=== PATIENT | male | born 1965 | race Caucasian/White ===

== ENCOUNTER 2021-08-26 18:08 | Inpatient (IN) ==
[2021-08-26] MEDS ORDERED: IOPAMIDOL 100 ML BOTTLE IV ONE (18:09)
--- NOTE | 2021-08-26 18:29 | Emergency Department Note ---
Abdominal Pain HPI General Chief Complaint: Abdominal Pain Stated Complaint: abdominal pain Time Seen by Provider: 08/26/21 18:13 Source: patient Mode of arrival: ambulatory Limitations: no limitations History of Present Illness HPI Narrative: Narrative: This is a 55-year-old male with a past medical history of hyp ertension presents emergency department with complaints of abdominal pain. He states that for the last 3 days he has been having suprapubic abdominal pain that is okay in the morning but worse in the afternoon. He describes the pain as a burning and sometimes stabbing-like sensation. Ibuprofen seems to improve the pain. Palpation makes it worse along with moving around. He has had some chills last night but no fever. He denies chest pain shortness of breath nausea or vomiting. He did notice some blood that was "layed" in his stool that he first noticed yesterday but did not have any melanotic stools. He was told after his colonoscopy that he does have diverticulosis. He has never had diverticulitis. He denies any previous abdominal surgeries. He states that sometimes it does hurt a little bit to pee and to get his stream going but otherwise denies urgency or frequency. Related Data Previous Rx's Medication Instructions Recorded cephalexin 500 mg capsule 500 mg PO BID #20 cap 07/24/17 Allergies Allergy/AdvReac Type Severity Reaction Status Date / Time No Known Drug Allergies Allergy Verified 07/24/17 15:26 Review of Systems ROS ROS Narrative: Narrative: All systems ED: reviewed and negative except as stated. Constitutional: Reports chills Gastrointestinal: Reports other (Suprapubic pain) [facility] Narrative Patient History Narrative: Narrative: Medical/Surgical/Family History All Active Problems (Updated 08/26/21 @ 20:17 by Juan Villasenor PA-C) Finger laceration (Acute) Acute appendicitis (Acute) Social History Smoking Status: Smokeless tobacco Exam Narrative Narrative: Narrative: General Limitations: no limitations General appearance: Present alert and in no apparent distress Head Head: Present atraumatic and normocephalic Adbominal Abdominal: Present other (Suprapubic pain with palpation. Abdomen is soft and nondistended. diffuse No tenderness over McBurney's point. Negative Robison sign.) Neurological Neurological: Present alert and oriented X3 Psychiatric Psychiatric: Present normal affect and normal mood Skin Skin: Present warm (WNL), dry and normal color Course Vital Signs Vital signs: Vital Signs Temperature 97.5 F 08/26/21 18:08 Pulse Rate 94 H 08/26/21 18:08 Respiratory Rate 16 08/26/21 18:08 Blood Pressure 142/97 08/26/21 18:08 Pulse Oximetry (%) 96 08/26/21 18:08 Temperature 97.5 F 08/26/21 18:08 Pulse Rate 82 08/26/21 20:01 Respiratory Rate 18 08/26/21 18:37 Blood Pressure 166/103 08/26/21 20:01 Pulse Oximetry (%) 94 08/26/21 20:01 MDM MDM Narrative Medical decision making narrative: Narrative: Labs done at [facility] was CBC which showed leukocytosis at 17.3 thousand with increase in the absolute neutrophil count and percentage of neutrophils. UA shows a small amount of urine bilirubin, trace ketones, large amount of blood, slight protein. CMP is reviewed and unremarkable CT of abdomen pelvis with contrast showed: 1. Extensive inflammatory change in the right lower quadrant. Appearance is consistent with ruptured appendicitis and abscess formation 2. Sigmoid diverticulosis 3. Hepatic steatosis IV Zosyn started I spoke with Dr. Romeo who reviewed the imaging. He is coming in the emergency department to have a shared decision making with the patient in regards to radiology drain those abscesses versus going in for operative management. Morphine and Zofran given for pain and nausea prophylactically. Dr. Romeo has decided to take the patient to the OR and will admit the patient. Lab Data Result diagrams: 08/26/21 18:24 Labs: Lab Results 08/26/21 Range/Units 18:24 Sodium 135 (133-145) mmol/L Potassium 4.5 (3.3-5.1) mmol/L Chloride 101 (96-108) mmol/L Carbon Dioxide 23 (22-30) mmol/L Anion Gap 11.0 (8.0-16.0) BUN 14 (6-20) mg/dL Creatinine 1.1 (0.7-1.2) mg/dL GFR Calculation 75 Glucose 100 (70-105) mg/dL Calcium 9.6 (8.6-10.4) mg/dL Total Bilirubin 0.9 (0.1-1.0) mg/dL AST 14 (<40) U/L ALT 19 (<40) U/L Alkaline Phosphatase 71 (39-117) U/L Total Protein 7.1 (5.9-8.4) gm/dL Albumin 4.0 (3.2-5.2) gm/dL Globulin 3.1 (2.2-3.7) gm/dL Albumin/Globulin Ratio 1.3 (1.0-2.3) Lipase 26 (7-60) U/L Discharge Plan Patient/Caregiver Discharge Instructions Pt seen by YARD ASSOCIATE/PA only: No Clinical Impression: Appendicitis, acute Activity: increase activity as tolerated Patient Disposition: Xfer As Inpt ([facility]) Condition: Serious Follow up with: Myrna Stein ARNP [Primary Care Provider] - Prescriptions: No Action cephalexin 500 MG capsule 500 mg PO BID Qty: 20 0RF
[2021-08-26 19:21] LABS: ALT/SGPT 19 U/L (<40); AST/SGOT 14 U/L (<40); Albumin/Globulin Ratio 1.3 (1.0-2.3); Alkaline Phosphatase 71 U/L (39-117); Bilirubin,Total 0.9 mg/dL (0.1-1.0); Blood Urea Nitrogen 14 mg/dL (6-20); Calcium 9.6 mg/dL (8.6-10.4); Carbon Dioxide 23 mmol/L (22-30); Chloride 101 mmol/L (96-108); Globulin 3.1 gm/dL (2.2-3.7); Glomerular Filtration Rate 75; Glucose 100 mg/dL (70-105)
--- NOTE | 2021-08-26 19:33 | Cat Scan Report ---
INDICATION: suprapubic pain, hx of diverticulosis. WBC 17k COMPARISON: None. TECHNIQUE: Axial images were obtained through the abdomen and pelvis. Sagittally and coronally reformatted images. 80 mL Isovue 370 injected intravenously. Oral contrast material was not administered FINDINGS: Lung bases:Negative. No pulmonary parenchymal nodule. No pleural fluid or pericardial fluid Liver:Low density liver consistent with hepatic steatosis. 9 mm low-density abnormality in the right lobe of the liver most consistent with cysts. Liver contour is smooth. No intrahepatic abscess Gallbladder, bilary:No calcified gallstones. No gallbladder wall thickening. No dilated intra or extrahepatic bile ducts. Spleen:Mild splenomegaly. Spleen measures 14.3 x 13.3 cm. Normal enhancement of splenic and portal veins Pancreas:No pancreatic mass. No peripancreatic abnormality Adrenal glands:Negative Kidneys,ureters,bladder:No solid renal mass. No hydronephrosis. No obstructing or nonobstructing calculi. No hydroureter. No ureteral calculus. No bladder stone. No detectable bladder mass. Gastrointestinal:There is sigmoid colon diverticulosis. No detectable colonic mass. There is extensive inflammatory reaction in the right lower quadrant. There are 2 low density abnormalities which measure 3.2 cm and 2.4 cm. There are no gas bubbles but is low-density abnormalities are consistent with abscess. Although there is extensive diverticulosis in this patient gives a history of diverticulitis this appearance is most consistent with ruptured appendicitis. Proximal appendix measures 15 mm. Negative small bowel. No mechanical small bowel obstruction. No bowel wall thickening. No focal abnormality. Negative stomach and duodenum. No focal abnormality. Appendix: The appendix is abnormal. As described above appearance is consistent with acute ruptured appendicitis with abscesses Vascular:Negative abdominal aorta. Superior mesenteric artery and celiac trunk are normal. Normal opacification of the inferior mesenteric artery Lymphatic:There are multiple lymph nodes in the right lower quadrant. Mesentery, peritoneum: Mild free intraperitoneal fluid. No significant pneumoperitoneum Reproductive:Prostate is not significantly enlarged Musculoskeletal:Multilevel degenerative disc disease No abdominal wall or inguinal hernia IMPRESSION: 1. Extensive inflammatory change in the right lower quadrant. Appearance is consistent with ruptured appendicitis and abscess formation 2. Sigmoid diverticulosis 3. Hepatic steatosis The exam was performed using radiation dose optimization techniques including, but not limited to, automated exposure control, adjustment of the mA and/or kV according to patient size and use of iterative reconstruction technique. Interpreted and Authenticated by: Pedro Garcia 08/26/21
[2021-08-26] MEDS ORDERED: PIPERACILLIN SODIUM/TAZOBACTAM 3.375 GM in DEXTROSE 5% IN WATER 50 ML IV ONE (19:39)
[2021-08-26] MEDS ORDERED: ONDANSETRON 4 MG/2 ML VIAL IV ONE (19:51)
[2021-08-26] MEDS ORDERED: morphine 10 MG/ML VIAL IV ONE (19:51)
--- NOTE | 2021-08-26 20:30 | General Surg History&Physical ---
HPI History of Present Illness Patient information: Note initiated : 08/26/21 at 8:27 pm Service Date, if different from initiated Date: [] Patient: Jesse Krishnamurthy 55 y/o M admitted on for abdominal pain. Chief Complaint: [] Chief complaint: Abdominal pain History of present illness: Mr. Krishnamurthy is a 55 year old M who presents with 3-day history of vague abdominal pain. He says it is worse in the mornings, gets better midday and then worse in the evening. He denies any prior history of similar sort of pain. Upon p resentation today the pain is along with worse in the right lower quadrant. He reports mild fevers with chills, no nausea vomiting constipation or diarrhea. He has no prior surgical or medical history other than a knee replacement recently. He presented to the emergency room for evaluation his pain where CT scan was consistent with perforated appendicitis. Review of Systems Review of systems: All systems are reviewed, negative other than above PFSH PFSH All Active Problems Finger laceration (Acute) Acute appendicitis (Acute) MEDS/ALLERGIES Home Medications and Allergies Home Medications Medication Instructions Recorded Confirmed Type cephalexin 500 mg capsule 500 mg PO BID #20 cap 07/24/17 Rx Allergies Allergy/AdvReac Type Severity Reaction Status Date / Time No Known Drug Allergies Allergy Verified 07/24/17 15:26 Physical Examination Vital Signs Vital signs: Temp Pulse Resp BP Pulse Ox 97.5 F 82 18 166/103 94 08/26/21 18:08 08/26/21 20:01 08/26/21 18:37 08/26/21 20:01 08/26/21 20:01 General physical appearance General physical exam: well developed, well nourished and no distress Eyes Eye exam: PERRL and normal ocular movement ENT ENT exam: normal pinna, normal nares, normal mucosa, no hearing loss and no congestion Head Head exam IM: Present atraumatic and normocephalic Neck Neck exam: no masses, no bruits, trachea midline, no lymphadenopathy and no venous distension Cardiovascular Cardiovascular exam IM: Present normal rate and rhythm Respiratory Respiratory exam: normal expansion, normal respiratory effort, clear to percussion and clear to auscultation Abdomen Abdomen: Present soft, tender (RLQ), bowel sounds, guarding and distended; Absent rigid or rebound Hernia: Present none Genitourinary Genitourinary (Male): Present normal penis with no external lesions Rectum Rectum: Present normal sphincter tone, no hemorrhoids, no tenderness, no masses and no bleeding Integumentary Integumentary: Present no rash, no growths and no abnormal pigmentation Neurologic Neurologic: Present normal coordination and normal sensation Musculoskeletal Musculoskeletal: Present normal gait and normal posture Psychiatric Psychiatric: Present oriented to time, oriented to person, oriented to place, speech is normal and memory intact Results Labs Result diagrams: 08/26/21 18:24 Labs: Diabetes panel 08/26/21 Range/Units 18:24 Sodium 135 (133-145) mmol/L Potassium 4.5 (3.3-5.1) mmol/L Chloride 101 (96-108) mmol/L Carbon Dioxide 23 (22-30) mmol/L BUN 14 (6-20) mg/dL Creatinine 1.1 (0.7-1.2) mg/dL Glucose 100 (70-105) mg/dL Calcium 9.6 (8.6-10.4) mg/dL AST 14 (<40) U/L ALT 19 (<40) U/L Alkaline Phosphatase 71 (39-117) U/L Total Protein 7.1 (5.9-8.4) gm/dL Albumin 4.0 (3.2-5.2) gm/dL Calcium panel 08/26/21 Range/Units 18:24 Calcium 9.6 (8.6-10.4) mg/dL Albumin 4.0 (3.2-5.2) gm/dL Pituitary panel 08/26/21 Range/Units 18:24 Sodium 135 (133-145) mmol/L Potassium 4.5 (3.3-5.1) mmol/L Chloride 101 (96-108) mmol/L Carbon Dioxide 23 (22-30) mmol/L BUN 14 (6-20) mg/dL Creatinine 1.1 (0.7-1.2) mg/dL Glucose 100 (70-105) mg/dL Calcium 9.6 (8.6-10.4) mg/dL Adrenal panel 08/26/21 Range/Units 18:24 Sodium 135 (133-145) mmol/L Potassium 4.5 (3.3-5.1) mmol/L Chloride 101 (96-108) mmol/L Carbon Dioxide 23 (22-30) mmol/L BUN 14 (6-20) mg/dL Creatinine 1.1 (0.7-1.2) mg/dL Glucose 100 (70-105) mg/dL Calcium 9.6 (8.6-10.4) mg/dL Total Bilirubin 0.9 (0.1-1.0) mg/dL AST 14 (<40) U/L ALT 19 (<40) U/L Alkaline Phosphatase 71 (39-117) U/L Total Protein 7.1 (5.9-8.4) gm/dL Albumin 4.0 (3.2-5.2) gm/dL All other labs normal. A/P Assessment and plan (1) Acute appendicitis: Plan: This is a pleasant 55-year-old gentleman who presents with acute appendicitis, likely perforation with small fluid collections abscess. Risk, benefits, alternatives to treatment including nonoperative management with IV antibiotics, possible need for interventional radiology drain of the fluid collections, operative intervention laparoscopic with possible need for open discussed at length. He verbalizes understanding, all of his questions are answered. He desires to proceed with operative intervention. Plan: Laparoscopic appendectomy. Status: Acute Time Spent With Patient Time: Total time spent is greater than 50% in coordination of care (as documented) at patient's floor/unit and/or counseling patient:
[2021-08-26] MEDS ORDERED: ROCURONIUM 10 MG/ML ML IV ONE (21:20)
[2021-08-26] MEDS ORDERED: KETAMINE 50 MG/ML Syringe (ANEST) IV ONE (21:20)
[2021-08-26] MEDS ORDERED: SUGAMMADEX SODIUM 200 MG/2 ML VIAL IV ONE (21:20)
[2021-08-26] MEDS ORDERED: DEXAMETHASONE 10 MG/ML VIAL ONE (21:20)
[2021-08-26] MEDS ORDERED: LIDOCAINE HCL/PF 100 MG/5 ML SYRINGE IV ONE (21:20)
[2021-08-26] MEDS ORDERED: ONDANSETRON 4 MG/2 ML VIAL ONE (21:20)
[2021-08-26] MEDS ORDERED: fentaNYL 100 MCG/2 ML VIAL IV ONE (21:20)
[2021-08-26] MEDS ORDERED: PROPOFOL 200 MG/20 ML VIAL IV ONE (21:20)
[2021-08-26] MEDS ORDERED: MAGNESIUM SULFATE 4 GM/100 ML BAG IV ONE (21:20)
[2021-08-26] MEDS ORDERED: LACTATED RINGERS 250 ML IV PRN (21:39)
[2021-08-26] MEDS ORDERED: IPRATROPIUM/ALBUTEROL 3 ML AMPUL.NEB NEB PRN (21:39)
[2021-08-26] MEDS ORDERED: fentaNYL 100 MCG/2 ML VIAL IV PRN (21:39)
[2021-08-26] MEDS ORDERED: KETOROLAC 30 MG/ML VIAL IV PRN (21:39)
[2021-08-26] MEDS ORDERED: PROMETHAZINE 25 MG/ML VIAL IV PRN (21:39)
[2021-08-26] MEDS ORDERED: ONDANSETRON 4 MG/2 ML VIAL IV PRN ×2 (21:39→22:01)
[2021-08-26] MEDS ORDERED: HYDROmorphone 0.5 MG/0.5 ML SYRINGE IV PRN (21:39)
[2021-08-26] MEDS ORDERED: NALOXONE HCL 0.4 MG/ML VIAL IV PRN (21:39)
[2021-08-26] MEDS ORDERED: diphenhydrAMINE 50 MG/ML VIAL IV PRN (21:39)
[2021-08-26] MEDS ORDERED: MEPERIDINE 25 MG/ML VIAL IV PRN (21:39)
[2021-08-26] MEDS ORDERED: ACETAMINOPHEN 1,000 MG/100 ML BAG IV ONE ×2 (21:39→22:24)
[2021-08-26] MEDS ORDERED: LACTATED RINGERS 1,000 ML IV SCH (21:45)
[2021-08-26] MEDS ORDERED: oxyCODONE HCL 5 MG TABLET PO PRN (22:01)
--- NOTE | 2021-08-26 22:01 | Operative Note ---
Brief Operative Note Date of procedure: 08/26/21 Pre-op diagnosis: Acute perforated appendicitis Post-op diagnosis: other (Perforated sigmoid diverticulitis) Procedure: Laparoscopic appendectomy, drainage of intra-abdominal abscess, drain placement Grafts/Implants: No Anesthesia: GETA Findings: Consistent with perforated sigmoid diverticulitis with several interloop abscesses Complications: none Surgeon: Edilson Romeo Estimated blood loss (cc): 25 Specimens Removed/Pathology: other (Appendix) Condition: stable Disposition: PACU Operative Note Operative Note: After risk benefits and alternatives to the procedure were discussed with the patient at length he verbalized understanding and desire to continue with the procedure. Patient was taken main operating room placed supine operative table. General anesthesia was induced over endotracheal tube. Patient's prepped and draped in standard sterile surgical fashion. Surgical timeout was taken to verify patient and procedure being performed. 1% lidocaine half percent Marcaine was used for local anesthesia. Left side incision was made and the abdominal cavity was entered under direct vision using a 5 mm Optiview trocar. Abdominal cavity was insufflated with carbon dioxide and visual inspection revealed no injuries. 12 mm supraumbilical and a 5 mm left lower quadrant trochars were then placed under direct vision. Attention was turned to the lower abdomen where acutely inflamed sigmoid was identified with multiple loops of small bowel attached, these were carefully taken down with blunt dissection and multiple interloop abscesses were identified. These were carefully suctioned free from the abdominal cavity. The appendix was then identified, it was dissected free from the surrounding structures with blunt dissection. Once this was done the appendix was mobile and the retroappendiceal window was created with blunt dissection and the appendix was transected at its base using Endo NILAM stapler. The remainder of the mesoappendix was then transected using electrocautery. Once appendix was fully transected and dissected free it was placed in Endo Catch bag removed thro ugh the upper midline incision and passed off the field for surgical pathology. The abdominal cavity was copiously irrigated and all irrigant was suctioned free from the pelvis. There was no josiah stool in the abdomen. Attention was turned back to the staple lines which were inspected for hemostasis. 10 Israeli flat drain was placed into the pelvis and removed through the left lower quadrant incision. The upper midline fascial defect was then reapproximated with interrupted 0 Vicryl suture. The CO2 and trochars were removed under direct vision. Trocar sites were inspected for hemostasis. The skin incisions were closed with interrupted 4 Monocryl sutures and skin glue dressings were applied. Drain stitch was placed around the left lower quadrant drain and drain dressings were applied. Patient was then awakened from general anesthesia transferred postanesthesia care unit awake alert in good condition.
[2021-08-26] MEDS ORDERED: CIPROFLOXACIN 400 MG/200 ML BAG IV SCH (22:15)
[2021-08-26] MEDS ORDERED: LIDOCAINE W/EPI 1% 20 ML, BUPIVACAINE 0.5% 20 ML IJ ONE (22:23)
[2021-08-26] MEDS: LACTATED RINGERS 1,000 ML IV SCH (22:24)
[2021-08-26] MEDS ORDERED: CIPROFLOXACIN 400 MG/200 ML BAG IV ONE (22:54)
[2021-08-26] MEDS: metroNIDAZOLE 500 MG/100 ML BAG IV SCH (22:56)
[2021-08-27 05:55] LABS: Basophils # (Auto) 0.03 K/mcL (0.00-0.30); Basophils % (Auto) 0.2 % (0.0-2.0); Eosinophils # (Auto) 0.01 K/mcL (0.00-0.70); Eosinophils % (Auto) 0.1 % (0.0-7.0); Hematocrit 42.1 % (40.1-51.0); Hemoglobin 14.2 g/dL (13.7-17.5); Lymphocytes # (Auto) 0.56 K/mcL (1.50-4.80); Lymphocytes % (Auto) 3.3 % (15.5-49.0); Mean Cell Volume 98.4 fL (80.0-100.0); Mean Corpuscular HGB Conc 33.7 g/dL (31.0-36.0); Mean Platelet Volume 9.2 fL (7.4-10.4); Monocytes # (Auto) 0.49 K/mcL (0.10-0.90); Monocytes % (Auto) 2.9 % (1.0-12.0); Neutrophils % (Auto) 93.5 % (38.0-78.0); Platelet Count 327 K/mcL (140-440); RBC 4.28 M/mcL (4.63-6.08); Red Cell Distribution Width 12.7 % (11.5-14.5)
[2021-08-27 06:22] LABS: Blood Urea Nitrogen 13 mg/dL (6-20); Carbon Dioxide 19 mmol/L (22-30); Chloride 100 mmol/L (96-108); Glomerular Filtration Rate 84; Glucose 147 mg/dL (70-105)
[2021-08-27] MEDS: metroNIDAZOLE 500 MG/100 ML BAG IV SCH (06:49)
--- NOTE | 2021-08-27 07:40 | General Surgery Progress Note ---
SUBJECTIVE Subjective Patient information: Note initiated : 08/27/21 at 7:33 am Service Date, if different from initiated Date: [] Patient: Jesse Krishnamurthy 55 y/o M admitted on 08/26/21 for abdominal pain. Chief Complaint: [] Principal diagnosis: Perforated diverticulitis Interval history: Patient feels much better this morning, no fevers chills nausea or vomiting. Constitutional Vitals: Vital Signs Temp Pulse Resp BP Pulse Ox 96.4 F L 86 18 133/84 98 08/27/21 04:15 08/27/21 04:15 08/27/21 04:15 08/27/21 04:15 08/27/21 04:15 Period Temp Pulse Resp BP Sys/Kaur Pulse Ox Last 24 Hr 96.4 F-98.6 F 79-120 16-28 115-166/73-111 91-99 Intake and Output 08/26/21 08/27/21 08/27/21 21:59 05:59 13:59 Intake Total 50 1875 Output Total 625 Balance 50 1250 Weight 236 lb 236 lb Intake & Output: Intake & Output 08/26/21 08/27/21 08/27/21 21:59 05:59 13:59 Intake Total 50 1875 Output Total 625 Balance 50 1250 Weight 236 lb 236 lb Intake: IV 50 400 Zosyn 3.375 gm In Dextrose 5% 50 in Water 50 ml @ 100 mls/hr IV ONCE ONE Rx#:[id number] Oral 575 IV - Manual Only 900 Output: Drainage 75 Left Lower Abdomen 75 Void Amount 550 Other: Urine Appearance Clear Urine Color Dark Yellow General appearance: cooperative and no acute distress GI/Abdominal GI/Abdominal exam: Present soft and tenderness; Absent distended A/P Assessment and plan (1) Diverticulitis large intestine: Assessment and plan: Postop day #1 status post laparoscopic appendectomy with abdominal washout secondary to perforated diverticulitis. Patient is doing well, will start p.o. antibiotics, regular diet. Anticipate discharge in the next several days. Status: Acute Time Spent With Patient Time: Total time spent is greater than 50% in coordination of care (as documented) at patient's floor/unit and/or counseling patient:
[2021-08-27] MEDS: LACTATED RINGERS 1,000 ML IV SCH ×2 (09:22→14:45)
[2021-08-27] MEDS: 0.9 % SODIUM CHLORIDE 10 ML SYRINGE IV SCH ×3 (09:42→21:09)
[2021-08-27] MEDS: ACETAMINOPHEN 325 MG TABLET PO PRN ×2 (09:52→17:45)
[2021-08-27] MEDS: IBUPROFEN 600 MG TABLET PO PRN ×2 (09:53→17:45)
[2021-08-27] MEDS: CIPROFLOXACIN 500 MG TABLET PO SCH ×2 (09:53→21:09)
--- NOTE | 2021-08-27 12:38 | EKG ---
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
[2021-08-27] MEDS: metroNIDAZOLE 500 MG TABLET PO SCH ×2 (14:11→21:09)
[2021-08-28] MEDS: IBUPROFEN 600 MG TABLET PO PRN ×2 (00:12→08:05)
[2021-08-28] MEDS: ACETAMINOPHEN 325 MG TABLET PO PRN ×2 (03:44→16:57)
[2021-08-28] MEDS: metroNIDAZOLE 500 MG TABLET PO SCH ×3 (05:40→21:34)
[2021-08-28] MEDS: 0.9 % SODIUM CHLORIDE 10 ML SYRINGE IV SCH ×3 (05:41→21:35)
[2021-08-28 06:53] LABS: Basophils # (Auto) 0.05 K/mcL (0.00-0.30); Basophils % (Auto) 0.3 % (0.0-2.0); Eosinophils # (Auto) 0.01 K/mcL (0.00-0.70); Eosinophils % (Auto) 0.1 % (0.0-7.0); Hematocrit 43.3 % (40.1-51.0); Hemoglobin 14.3 g/dL (13.7-17.5); Lymphocytes # (Auto) 1.69 K/mcL (1.50-4.80); Lymphocytes % (Auto) 8.6 % (15.5-49.0); Mean Cell Volume 98.2 fL (80.0-100.0); Mean Platelet Volume 9.6 fL (7.4-10.4); Monocytes # (Auto) 0.97 K/mcL (0.10-0.90); Monocytes % (Auto) 4.9 % (1.0-12.0); Neutrophils % (Auto) 86.1 % (38.0-78.0); Platelet Count 411 K/mcL (140-440); RBC 4.41 M/mcL (4.63-6.08); Red Cell Distribution Width 12.7 % (11.5-14.5); WBC 19.7 K/mcL (4.5-11.0)
[2021-08-28 07:16] LABS: Blood Urea Nitrogen 18 mg/dL (6-20); Calcium 9.4 mg/dL (8.6-10.4); Carbon Dioxide 19 mmol/L (22-30); Chloride 104 mmol/L (96-108); Glomerular Filtration Rate 84; Glucose 126 mg/dL (70-105)
[2021-08-28] MEDS: CIPROFLOXACIN 500 MG TABLET PO SCH ×2 (08:08→21:34)
--- NOTE | 2021-08-28 22:12 | General Surgery Progress Note ---
SUBJECTIVE Subjective Patient information: Note initiated : 08/28/21 at 10:09 pm Service Date, if different from initiated Date: [] Patient: Jesse Krishnamurthy 55 y/o M admitted on 08/26/21 for abdominal pain. Chief Complaint: [] Principal diagnosis: Perforated diverticulitis Interval history: POD 1, feels well, no fever, chills, nausea, emisis. Alexander regular diet WBC increased to 20K Constitutional Vitals: Vital Signs Temp Pulse Resp BP Pulse Ox 98.3 F 63 16 131/88 98 08/28/21 20:00 08/28/21 20:00 08/28/21 20:00 08/28/21 20:00 08/28/21 20:00 Period Temp Pulse Resp BP Sys/Kaur Pulse Ox Last 24 Hr 96.7 F-98.3 F 63-75 16-20 128-153/84-97 97-100 Intake and Output 08/28/21 08/28/21 08/29/21 13:59 21:59 05:59 Intake Total 360 1080 Output Total 5 Balance 360 1075 Intake & Output: Intake & Output 08/28/21 08/28/21 08/29/21 13:59 21:59 05:59 Intake Total 360 1080 Output Total 5 Balance 360 1075 Intake: Oral 360 1080 Output: Drainage 5 Left Lower Abdomen 5 Other: Meal Dinner Percent of Meal Consumed 100% Feeding Ability Independent # Voids 3 General appearance: cooperative and no acute distress GI/Abdominal GI/Abdominal exam: Present soft; Absent distended or tenderness Additional comments: inc: clean dry, intact A/P Narrative A/P Narrative: doing well, alexander po increased wbc cont with abx, will follow wbc Time Spent With Patient Time: Total time spent is greater than 50% in coordination of care (as documented) at patient's floor/unit and/or counseling patient:
[2021-08-29] MEDS: metroNIDAZOLE 500 MG TABLET PO SCH (05:15)
[2021-08-29] MEDS: 0.9 % SODIUM CHLORIDE 10 ML SYRINGE IV SCH (05:19)
[2021-08-29 06:27] LABS: Basophils # (Auto) 0.08 K/mcL (0.00-0.30); Basophils % (Auto) 0.5 % (0.0-2.0); Eosinophils # (Auto) 0.17 K/mcL (0.00-0.70); Eosinophils % (Auto) 1.1 % (0.0-7.0); Hematocrit 46.7 % (40.1-51.0); Hemoglobin 15.2 g/dL (13.7-17.5); Lymphocytes % (Auto) 22.2 % (15.5-49.0); Mean Cell Volume 99.8 fL (80.0-100.0); Mean Corpuscular HGB Conc 32.5 g/dL (31.0-36.0); Mean Platelet Volume 9.4 fL (7.4-10.4); Monocytes # (Auto) 0.88 K/mcL (0.10-0.90); Monocytes % (Auto) 5.7 % (1.0-12.0); Neutrophils % (Auto) 70.5 % (38.0-78.0); Platelet Count 419 K/mcL (140-440); RBC 4.68 M/mcL (4.63-6.08); Red Cell Distribution Width 12.9 % (11.5-14.5); WBC 15.3 K/mcL (4.5-11.0)
[2021-08-29 06:58] LABS: Blood Urea Nitrogen 17 mg/dL (6-20); Calcium 9.4 mg/dL (8.6-10.4); Carbon Dioxide 21 mmol/L (22-30); Chloride 104 mmol/L (96-108); Glomerular Filtration Rate 75; Glucose 98 mg/dL (70-105)
[2021-08-29] MEDS: CIPROFLOXACIN 500 MG TABLET PO SCH (08:23)
--- NOTE | 2021-08-29 09:52 | Discharge Summary ---
Discharge Provider Provider Patient information: Note initiated : 08/29/21 at 9:50 am Service Date, if different from initiated Date: [] Patient: Jesse Krishnamurthy 55 y/o M admitted on 08/26/21 for abdominal pain. Chief Complaint: [] Date of admission: 08/26/21 22:40 Discharge date: 08/29/21 Primary care physician: Myrna Stein Consults: 08/26/21 Consult to Physician [CONS] Stat Comment: Consulting Provider: Edilson Romeo Reason For Exam: Physician to Consult COURSE Hospital Course Hospital course: Patient was mated for what appeared to be perforated appendicitis read on CT scan, turned out to be perforated diverticulitis. Patient underwent a laparoscopic appendectomy with abdominal washout and drain placement. He was then progressed to regular diet and p.o. antibiotics, his pain is resolved and he feels much better today and his white count is trending down. Discharge diagnosis: Perforated sigmoid diverticulitis Time Spent with Patient Time attestation: Total time spent providing and/or coordinating discharge services: Physical Examination Vital Signs Vital signs: Temp Pulse Resp BP Pulse Ox 97.4 F 64 16 138/74 98 08/29/21 07:20 08/29/21 07:20 08/29/21 07:20 08/29/21 07:20 08/29/21 07:20 Discharge Plan Patient/Caregiver Discharge Instructions Activity: increase activity as tolerated Diet: Regular Diet Activity Restrictions/Additional Instructions: Follow-up with me within 3 to 5 days for drain removal. Resume normal activity as tolerated. Prescriptions: New metronidazole 500 mg Tablet 500 mg PO Q8 Qty: 24 0RF ciprofloxacin HCl 500 mg Tablet 500 mg PO BID Qty: 16 0RF Continued losartan 100 mg tablet 1 tab PO QDAY 0RF travoprost 0.004 % drops 1 drp OPHTHALMIC (EYE) HS 0RF loratadine-pseudoephedrine [Claritin-D 24 Hour] 10-240 mg Tablet Extended Release 24 Hr 1 tab PO DAILY 0RF Follow Up Plan Follow up with: Edilson Romeo MD [Physician] - Myrna Stein ARNP [Primary Care Provider] - Patient Disposition: Home, Self-Care Prognosis: Serious Discharge Orders: Discharge Order (Routine); Ordered 08/29/21 Ordered By: Edilson Romeo Pending Pending Pending: Resuscitation Status Resuscitate (Full Code) Diet Regular Diet Start Jeaneth Aug 27 1131 Acetaminophen (Acetaminophen 325 Mg Tablet) 650 mg PO Q6HP PRN; Protocol PRN Reason: Per Pain Protocol/Fever > 101 Last Admin: 08/28/21 16:57 Dose: 650 mg Documented by: Admin: 08/28/21 03:44 Dose: 650 mg Documented by: Admin: 08/27/21 17:45 Dose: 650 mg Documented by: Admin: 08/27/21 09:52 Dose: 650 mg Documented by: MARII Ciprofloxacin (Ciprofloxacin 500 Mg Tablet) 500 mg PO BID MARGI; Protocol Last Admin: 08/29/21 08:23 Dose: 500 mg Documented by: Admin: 08/28/21 21:34 Dose: 500 mg Documented by: Admin: 08/28/21 08:08 Dose: 500 mg Documented by: Cosigned by: GERARDO Admin: 08/27/21 21:09 Dose: 500 mg Documented by: Admin: 08/27/21 09:53 Dose: 500 mg Documented by: MARII Ibuprofen (Ibuprofen 600 Mg Tablet) 600 mg PO QIDP PRN; Protocol PRN Reason: Per Pain Protocol/Fever > 101 Last Admin: 08/28/21 08:05 Dose: 600 mg Documented by: Cosigned by: GERARDO Admin: 08/28/21 00:12 Dose: 600 mg Documented by: Admin: 08/27/21 17:45 Dose: 600 mg Documented by: Admin: 08/27/21 09:53 Dose: 600 mg Documented by: MARII Metronidazole (Metronidazole 500 Mg Tablet) 500 mg PO Q8 MARGI; Protocol Last Admin: 08/29/21 05:15 Dose: 500 mg Documented by: Admin: 08/28/21 21:34 Dose: 500 mg Documented by: Admin: 08/28/21 13:24 Dose: 500 mg Documented by: Admin: 08/28/21 05:40 Dose: 500 mg Documented by: Admin: 08/27/21 21:09 Dose: 500 mg Documented by: Admin: 08/27/21 14:11 Dose: 500 mg Documented by: MARII Sodium Chloride (0.9 % Sodium Chloride 10 Ml Syringe) 10 ml IV Q8 MARGI Last Admin: 08/29/21 05:19 Dose: 10 ml Documented by: Admin: 08/28/21 21:35 Dose: 10 ml Documented by: Admin: 08/28/21 13:27 Dose: 10 ml Documented by: Admin: 08/28/21 05:41 Dose: 10 ml Documented by: Admin: 08/27/21 21:09 Dose: 10 ml Documented by: Admin: 08/27/21 14:59 Dose: Not Given Documented by: Admin: 08/27/21 09:42 Dose: Not Given Documented by: MARII Shift Summary 08/29/21 06:37 Shift Summary by Crow Clarke "BYRON," our patient here, is doing well. He is aaox4, minimal pain mostly at the midline incision no prns requested this morning. Bowel tones are active, no issues tolerating PO intake. Passing flatus. ABD incisions are CDI 'wound glue' open to air. The DAYO drain site is free from new drainage on gauze covering drain entrance. 5mL serous drainage out over night. WBC remains elevated. Abnormal lab results 08/28/21 08/28/21 08/29/21 Range/Units 05:48 05:48 05:14 WBC 19.7 H 15.3 H (4.5-11.0) K/mcL RBC 4.41 L (4.63-6.08) M/mcL Neut % (Auto) 86.1 H (38.0-78.0) % Lymph % (Auto) 8.6 L (15.5-49.0) % [place] # (Auto) 0.97 H (0.10-0.90) K/mcL Absolute Neutrophils 16.94 H 10.78 H (1.80-8.00) K/mcL Carbon Dioxide 19 L (22-30) mmol/L Glucose 126 H (70-105) mg/dL Initialized on 08/29/21 06:37 - END OF NOTE
== END 2021-08-29 10:50 | disposition home or self-care (01) | DRG 341 ==
LOC: ED 18:08 → SUR 21:07 → MEDSUR 22:40
PROVIDERS: ADMIT Surgery; ATTEND Surgery

== ENCOUNTER 2024-01-05 15:11 | Observation (INO) ==
[2024-01-05] MEDS ORDERED: IOPAMIDOL 100 ML BOTTLE IV ONE (15:12)
[2024-01-05] MEDS: MECLIZINE 25 MG TABLET PO ONE (15:53)
[2024-01-05] MEDS: 0.9 % SODIUM CHLORIDE 1,000 ML IV ONE (16:25)
[2024-01-05] MEDS: LOSARTAN 50 MG TABLET PO ONE (16:25)
[2024-01-05 16:46] LABS: Basophils # (Auto) 0.02 K/mcL (0.00-0.30); Basophils % (Auto) 0.2 % (0.0-2.0); Eosinophils # (Auto) 0.18 K/mcL (0.00-0.70); Eosinophils % (Auto) 2.1 % (0.0-7.0); Hematocrit 45.6 % (40.1-51.0); Hemoglobin 15.1 g/dL (13.7-17.5); Lymphocytes # (Auto) 2.42 K/mcL (1.50-4.80); Lymphocytes % (Auto) 28.3 % (15.5-49.0); Mean Corpuscular HGB Conc 33.1 g/dL (31.0-36.0); Mean Platelet Volume 9.1 fL (8.8-12.5); Monocytes # (Auto) 0.52 K/mcL (0.10-0.90); Monocytes % (Auto) 6.1 % (1.0-12.0); Neutrophils % (Auto) 62.5 % (38.0-78.0); Platelet Count 293 K/mcL (140-440); RBC 5.01 M/mcL (4.63-6.08); Red Cell Distribution Width 13.3 % (11.5-14.5); WBC 8.6 K/mcL (4.5-11.0)
[2024-01-05 16:59] LABS: ALT/SGPT 17 U/L (<40); AST/SGOT 22 U/L (<40); Albumin 4.5 gm/dL (3.2-5.2); Albumin/Globulin Ratio 1.8 (1.0-2.3); Alkaline Phosphatase 64 U/L (39-117); Bilirubin,Total 0.3 mg/dL (0.1-1.0); Blood Urea Nitrogen 13 mg/dL (6-20); Calcium 9.8 mg/dL (8.6-10.4); Carbon Dioxide 25 mmol/L (22-30); Chloride 104 mmol/L (96-108); Globulin 2.5 gm/dL (2.2-3.7); Glomerular Filtration Rate 83; Glucose 90 mg/dL (70-105); Potassium 4.2 mmol/L (3.3-5.1); Sodium 139 mmol/L (133-145)
[2024-01-05] MEDS: DIAZEPAM 5 MG TABLET PO ONE (17:53)
[2024-01-05] MEDS: ACETAMINOPHEN 325 MG TABLET PO ONE (21:18)
[2024-01-05] MEDS ORDERED: diphenhydrAMINE 25 MG CAPSULE PO PRN (21:28)
[2024-01-05] MEDS ORDERED: ONDANSETRON 4 MG/2 ML VIAL IV PRN (21:28)
[2024-01-05] MEDS ORDERED: MAGNESIUM HYDROXIDE 30 ML ORAL.SUSP PO PRN (21:28)
[2024-01-05] MEDS: 0.9 % SODIUM CHLORIDE 10 ML SYRINGE IV SCH (21:39)
[2024-01-05] MEDS: LACTATED RINGERS 1,000 ML IV SCH (21:39)
[2024-01-06] MEDS: ACETAMINOPHEN 325 MG TABLET PO PRN (04:16)
[2024-01-06 07:11] LABS: Basophils # (Auto) 0.04 K/mcL (0.00-0.30); Basophils % (Auto) 0.5 % (0.0-2.0); Eosinophils # (Auto) 0.28 K/mcL (0.00-0.70); Eosinophils % (Auto) 3.6 % (0.0-7.0); Hematocrit 43.2 % (40.1-51.0); Hemoglobin 14.4 g/dL (13.7-17.5); Lymphocytes # (Auto) 2.05 K/mcL (1.50-4.80); Lymphocytes % (Auto) 26.5 % (15.5-49.0); Mean Cell Volume 91.7 fL (80.0-100.0); Mean Corpuscular HGB Conc 33.3 g/dL (31.0-36.0); Mean Platelet Volume 9.9 fL (8.8-12.5); Monocytes # (Auto) 0.51 K/mcL (0.10-0.90); Monocytes % (Auto) 6.6 % (1.0-12.0); Neutrophils % (Auto) 62.2 % (38.0-78.0); Platelet Count 259 K/mcL (140-440); RBC 4.71 M/mcL (4.63-6.08); Red Cell Distribution Width 13.4 % (11.5-14.5); WBC 7.8 K/mcL (4.5-11.0)
[2024-01-06 07:30] LABS: Blood Urea Nitrogen 13 mg/dL (6-20); Calcium 9.5 mg/dL (8.6-10.4); Carbon Dioxide 24 mmol/L (22-30); Chloride 106 mmol/L (96-108); Glomerular Filtration Rate 74; Glucose 100 mg/dL (70-105); Potassium 4.2 mmol/L (3.3-5.1); Sodium 139 mmol/L (133-145)
[2024-01-06] MEDS: ENOXAPARIN 40 MG/0.4 ML SYRINGE SQ SCH (08:16)
[2024-01-06] MEDS: LOSARTAN 50 MG TABLET PO SCH (08:16)
[2024-01-06] MEDS: MECLIZINE 25 MG TABLET PO PRN (12:31)
== END 2024-01-06 12:43 | disposition home or self-care (01) ==
LOC: ED 15:11 → MEDSUR 15:11
PROVIDERS: ADMIT Student in an Organized Health Care Education/Training Program; ATTEND Student in an Organized Health Care Education/Training Program